=== PATIENT | female | born 1955 | race Caucasian/White ===

== ENCOUNTER 2025-05-18 07:50 | Day surgery (SDC) | payer OTHER ==
[2025-05-18] MEDS ORDERED: MIDAZOLAM HCL 2 MG/2 ML INJ ONE (09:27)
[2025-05-18] MEDS ORDERED: FLUMAZENIL 0.1 MG/ML (5 mL VIAL) IV ONE (09:27)
[2025-05-18] MEDS ORDERED: NA CHLORIDE 0.9% 500 ML ONE (09:28)
[2025-05-18] MEDS ORDERED: NALOXONE HCL 2 MG/2 ML VIAL ONE (09:28)
[2025-05-18] MEDS ORDERED: FENTANYL CITR 100 MCG/2 ML ONE (09:28)
[2025-05-18 09:30] LABS: PT Prothrombin Time 11.2 SECONDS (10-13.0); PTT, Activated Partial Thromb 26.2 SECONDS (27.2-37.4); Protime INR 0.99
--- NOTE | 2025-05-18 12:37 | RAD REPORT ---
EXAM: Chest Single View HISTORY: 69 years Female post lung biopsy COMPARISON: 01/19/2024 FINDINGS: LUNGS/PLEURA: The lungs are clear. No pleural effusions or pneumothorax. No pulmonary edema. CARDIAC/MEDIASTINUM: The cardiac silhouette is within normal limits. UPPER ABDOMEN: No significant abnormality. BONES: No acute abnormality. LINES/TUBES/OTHER: N/A IMPRESSION: No pneumothorax following left-sided lung biopsy. No acute process.
--- NOTE | 2025-05-18 13:29 | RAD REPORT ---
EXAMINATION: Chest Single View VIEWS: Two views CLINICAL INDICATION: Female, 69 years old. post lung biopsy COMPARISON: One hour prior IMPRESSION: No pneumothorax following left-sided lung biopsy.
[2025-05-18 14:29] VITALS: BP 117/70; TEMP 98.6; O2SAT 97
[2025-05-18 14:31] VITALS: BMI 40.2
--- NOTE | 2025-05-19 09:09 | RAD REPORT ---
PROCEDURE: CT-GUIDED BIOPSY Lung Biopsy Perc w/CT Pre-procedure diagnosis: Indeterminant lung nodules Post-procedure diagnosis: Same as above. COMPLICATIONS: No immediate complications. IMPRESSION: CT-guided biopsy of left lower lobe pulmonary nodule PROCEDURE DETAILS: Consent: Informed consent for the procedure including risks, benefits and alternatives was obtained a nd time-out was performed prior to the procedure. Sedation: Moderate sedation (conscious sedation) Administered by: Nurse, or other independent traine d observer, with level of consciousness and vital signs continuously monitored. Total sedation administered: 1 mL Versed and 50 mcg Fentanyl. Total intra-service sedation time: 15 minutes. Biopsy: Local anesthesia was administered. Under CT guidance, the biopsy needle was advanced to the t arget and biopsy was performed. [id number]. Number of specimens: 3 Additional sampling description: None. Preliminary assessment of sample adequacy: Not applicable. The biopsy needle was removed and a sterile dressing was applied. Post-biopsy imaging findings: No immediate complications seen. Additional Details: Additional description of procedure: Not applicable Equipment details: 18 gauge core sample device Estimated blood loss: Less than 10 mL.
== END 2025-05-18 13:44 | disposition home or self-care (01) ==
LOC: DS 07:50
PROVIDERS: ATTEND Internal Medicine Sleep Medicine
PROC: 0BBJ3ZX Excision of Left Lower Lung Lobe, Percutaneous Approach, Diagnostic (ICD-10-PCS; principal; 2025-05-18)
DX: C34.12 Malignant neoplasm of upper lobe, left bronchus or lung (principal); R91.1 Solitary pulmonary nodule
CPT/HCPCS: 32408; 36415; 85610; 88305; 85730; 77012; 71045 ×2; J2250; J3010; J7040; 99152; J2312